=== PATIENT | female | born 1980 | race Caucasian/White ===

== ENCOUNTER 2017-10-02 05:15 | Emergency (ER) ==
[2017-10-02 05:26] VITALS: BP 155/91; TEMP 98.6; BMI 38.2
--- NOTE | 2017-10-02 06:10 | CT ---
EXAM: CT head without contrast 10/02/2017. Sagittal and coronal reformatted images obtained HISTORY: Facial numbness COMPARISON: None. FINDINGS: There is no evidence of intracranial hemorrhage. The midline is maintained. There is no h ydrocephalus. No cerebellar tonsillar ectopia. Evaluation of the calvarium shows no fracture. Th e mastoid air cells are normally pneumatized. IMPRESSION: No acute intracranial abnormality.
--- NOTE | 2017-10-02 06:16 | ED.PDOC ---
General Stated Complaint: Patient state she woke up with Sudden onset of numbness/ tingling to right side of face with tingling radiating down right side of body to feet. Denies any pain or weakness. she also states she has had a headache for 2 days behind right ear but that pain gone today. Also feels anxious Time Seen by Physician: 06:00 Mode of Arrival: Walk-In Information Source: Patient Nursing and Triage Documentation Reviewed and Agree: Yes Does patient meet sepsis criteria?: Yes If yes, has appropriate treatment been initiated?: No System Inflammatory Response Syndrome: Pulse >90 BPM, Resp >20/Minute <DARRION EDWARDS - Last Filed: 10/02/17 06:59> <ART THAPA - Last Filed: 10/02/17 08:26> ED Provider: Dr. ART THAPA Chief Complaint: Non-specific Complaint Sepsis Protocol: For patient's 13 years and over: Temp is 96.8 and below OR 101 and greater Pulse >90 BPM Resp >20/minute Acutely Altered Mental Status Are patient's symptoms suggestive of a new infection, such as: -Pneumonia -Skin, Soft Tissue -Endocarditis -UTI -Bone, Joint Infection -Implantable Device -Acute Abdominal Infection -Wound Infection -Meningitis -Blood Stream Catheter Infection -Unknown Neurological Complaint Exam - Neurological Deficit Complaint/Exam Patient Complains of: Reports: Abnormal sensation Symptom Onset Unknown: Yes (when he woke up) Onset: Sudden Location: Reports: Facial, RUE, RLE Character: Reports: Numbness, Paresthesia. Denies: Tingling, Motor weakness, Paralysis, Sensory loss, Impaired speech Aggravating: Reports: None Alleviating: Reports: None Associated Signs and Symptoms: Reports: Headache (for 2 days prior today ). Denies: Confusion, Agitation, Responsiveness, LOC, Fever, Nuchal rigidity, Recent trauma, Remote trauma, Recent illness Related History: Denies: Similar episode, Anticoagulant therapy CVA Risk Factors: Denies: None, Diabetes, Hypertension, Smoking, PVD, CAD, Valvular Heart Disease SDH Risk Factors: Denies: None, Male, Seizures, Elderly, Recent trauma, Anticoagulant use, Coagulopathy Related Surgical History: Denies: None, Craniotomy, Tumor, Carotid Endarterectomy, Pacemaker, Artificial valve Carotid Bruit Present: No Glascow Coma Scale (see protocol): 15 Meningeal Signs Positive: Yes Focal Weakness: Absent: None, RUE, LUE, RLE, LLE, Right facial, Left facial Focal Sensory Loss: Absent: None, RUE, LUE, RLE, LLE, Right facial, Left facial Gait: Normal Nystagmus Present: No Gag Reflex Present: No [id number]: Normal Findings Romberg Test Positive: No Babinski Sign: Negative Right, Negative Left Heel to Toe Normal: Yes Signs of Trauma: No NIH Scale Score (see protocol): 15 IV t-PA Prescribed: No Differential Diagnoses: Anxiety, Pichardo's Palsy, TIA, Intracranial Mass, Metabolic Imbalance, Migraine Quality Indicator For Non-Traumatic Chest Pain/Syncope: EKG Performed <JERRYDARRION - Last Filed: 10/02/17 06:59> Review of Systems - Review Of Systems Constitutional: Reports: No symptoms Eyes: Reports: No symptoms Ears, Nose, Mouth, Throat: Reports: No symptoms Respiratory: Reports: No symptoms Cardiac: Reports: No symptoms GI: Reports: No symptoms : Reports: No symptoms Musculoskeletal: Reports: No symptoms Skin: Reports: No symptoms Neurological: Reports: Anxiety. Denies: Weakness Endocrine: Reports: No symptoms Hematologic/Lymphatic: Reports: No symptoms All Other Systems: Reviewed and Negative <JERRYDARRION - Last Filed: 10/02/17 06:59> Past Medical History - Past Medical History Previously Healthy: Yes Endocrine: Reports: None Cardiovascular: Reports: None Respiratory: Reports: None Hematological: Reports: None Gastrointestinal: Reports: None Genitourinary: Reports: None Neuro/Psych: Reports: None Musculoskeletal: Reports: None Cancer: Reports: None Last Menstrual Period: 1 week ago - Surgical History General Surgical History: Reports: - Family History Family History: Reports: None - Social History Smoking Status: Former smoker Hx Substance Use: No Alcohol Screening: Occasionally - Immunizations Tetanus Shot up to Date: Yes <DARRION EDWARDS - Last Filed: 10/02/17 06:59> Physical Exam - Physical Exam Appearance: Ill-appearing, Obese Ill-appearing: Mild Pain Distress: None Eyes: SHANNA, EOMI, Conjunctiva clear ENT: Ears normal, Nose normal, Oropharynx normal Neck: Supple Respiratory: Airway patent Cardiovascular: Tachycardia GI/: Soft, Nontender, No masses, Bowel sounds normal, No Organomegaly Musculoskeletal: Normal strength, ROM intact, No edema, No calf tenderness Skin: Warm Neurological: Sensation intact, Motor intact, Reflexes intact, Cranial nerves intact, Alert, Oriented Psychiatric: Anxious <GINADARRION GARCIA Last Filed: 10/02/17 06:59> Interpretation - Radiology Interpretation Radiology Interpretation By: Radiologist Radiology Results: Negative Exam Interpreted: CT Scan - Contracts Officer Time of Contracts Officer Interpretation: 06:00 Rate: Normal Rhythm: Sinus Ectopy: None - EKG Interpretation Time of EKG #1: 06:13 Rate: Normal Rhythm: Sinus Ectopy: None [place]: NL ST Segment: Normal Interpretation: normal EKG <DARRION EDWARDS Last Filed: 10/02/17 06:59> Re-Evaluation - Re-Evaluation Time of Re-Evaluation: 08:00 (Neuro intact; no apparent Pichardo's; speach normal) Status: Improved (No longer sensory changes R side body, extremities. Just "wierd" feeling R face) Vital Signs Stable: Yes Pain Level: None Appearance: NAD Skin: Warm and Dry Neuro: Alert and Oriented X3 <ART THAPA - Last Filed: 10/02/17 08:26> Critical Care Note - Critical Care Note Total Time (mins): 0 <GINARADHADARRION - Last Filed: 10/02/17 06:59> - Critical Care Note Total Time (mins): 45 (Eval of neurologic findings) <ART THAPA - Last Filed: 10/02/17 08:26> Course - Course Hematology/Chemistry: 10/02/17 06:05 10/02/17 06:05 <JERRYDARRION - Last Filed: 10/02/17 06:59> - Course Hematology/Chemistry: 10/02/17 06:05 10/02/17 06:05 <ALANISART - Last Filed: 10/02/17 08:26> - Course Orders, Labs, Meds: Lab Review 10/02/17 10/02/17 10/02/17 06:05 06:05 06:05 WBC 10.59 H RBC 4.76 Hgb 13.2 Hct 39.5 MCV 83.0 MCH 27.7 MCHC 33.4 RDW Coeff of Renetta 12.1 Plt Count 361 Immature Gran % (Auto) 0.4 Neut % (Auto) 57.4 Lymph % (Auto) 28.6 [place] % (Auto) 5.9 Eos % (Auto) 6.1 Baso % (Auto) 1.6 Immature Gran # (Auto) 0.0 Neut # (Auto) 6.1 Lymph # (Auto) 3.0 [place] # (Auto) 0.6 Eos # (Auto) 0.7 Baso # (Auto) 0.2 ESR Sodium 137 Potassium 3.7 Chloride 105 Carbon Dioxide 22 Anion Gap 13.7 BUN 10 Creatinine 0.67 Estimated GFR (MDRD) 99.00 BUN/Creatinine Ratio 14.92 Glucose 122 H Calcium 9.1 Total Bilirubin 0.3 AST 46 H ALT 67 Alkaline Phosphatase 98 Total Creatine Kinase 43 Troponin I 0.0140 Total Protein 7.1 Albumin 3.8 Globulin 3.3 Albumin/Globulin Ratio 1.15 TSH Free T4 Urine Color Urine Clarity Urine pH Ur Specific [place] Urine Protein Urine Glucose (UA) Urine Ketones Urine Blood Urine Nitrite Urine Bilirubin Urine Urobilinogen Ur Leukocyte Esterase Urine Test 10/02/17 10/02/17 10/02/17 06:05 06:05 06:45 WBC RBC Hgb Hct MCV MCH MCHC RDW Coeff of [place] Plt Count Immature Gran % (Auto) Neut % (Auto) Lymph % (Auto) [place] % (Auto) Eos % (Auto) Baso % (Auto) Immature Gran # (Auto) Neut # (Auto) Lymph # (Auto) [place] # (Auto) Eos # (Auto) Baso # (Auto) ESR 13 Sodium Potassium Chloride Carbon Dioxide Anion Gap BUN Creatinine Estimated GFR (MDRD) BUN/Creatinine Ratio Glucose Calcium Total Bilirubin AST ALT Alkaline Phosphatase Total Creatine Kinase Troponin I Total Protein Albumin Globulin Albumin/Globulin Ratio TSH 1.632 Free T4 0.88 Urine Color Yellow Urine Clarity Clear Urine pH 6.5 Ur Specific [place] <=1.005 Urine Protein Negative Urine Glucose (UA) Negative Urine Ketones Negative Urine Blood Negative Urine Nitrite Negative Urine Bilirubin Negative Urine Urobilinogen 0.2 Ur Leukocyte Esterase Negative Urine Test 10/02/17 06:45 WBC RBC Hgb Hct MCV MCH MCHC RDW Coeff of [place] Plt Count Immature Gran % (Auto) Neut % (Auto) Lymph % (Auto) [place] % (Auto) Eos % (Auto) Baso % (Auto) Immature Gran # (Auto) Neut # (Auto) Lymph # (Auto) [place] # (Auto) Eos # (Auto) Baso # (Auto) ESR Sodium Potassium Chloride Carbon Dioxide Anion Gap BUN Creatinine Estimated GFR (MDRD) BUN/Creatinine Ratio Glucose Calcium Total Bilirubin AST ALT Alkaline Phosphatase Total Creatine Kinase Troponin I Total Protein Albumin Globulin Albumin/Globulin Ratio TSH Free T4 Urine Color Urine Clarity Urine pH Ur Specific [place] Urine Protein Urine Glucose (UA) Urine Ketones Urine Blood Urine Nitrite Urine Bilirubin Urine Urobilinogen Ur Leukocyte Esterase Urine Test Negative Orders Category Date Time Status EKG-(ED ONLY) Stat CARDIO 10/02/17 05:44 Completed CBC W/ AUTO DIFF Stat LAB 10/02/17 06:05 Completed COMPREHENSIVE METABOLIC PANEL Stat LAB 10/02/17 06:05 Completed CREATINE KINASE Stat LAB 10/02/17 06:05 Completed ESR Stat LAB 10/02/17 06:05 Received FREE T4 (FREE THYROXINE) Stat LAB 10/02/17 06:05 Completed THYROID STIMULATING HORMONE Stat LAB 10/02/17 06:05 Completed TROPONIN I Stat LAB 10/02/17 06:05 Completed URINALYSIS C & S IF INDICATED Stat LAB 10/02/17 06:45 Completed URINE Stat LAB 10/02/17 06:[address] HEAD W/O CONTRAST Stat RADS 10/02/17 05:44 Completed Vital Signs: Temp Pulse Resp BP Pulse Ox 10/02/17 05:17 98.6 F 105 H 24 155/91 H 97 Departure <JERRYDARRION - Last Filed: 10/02/17 06:59> - Departure Time of Disposition: 08:16 Pt referred to PMD for follow-up: Yes (Call for appointment) IPMP verified?: No (No narcotics prescribed) Disposition Discussed With: Patient (Possibility of observation discussed; patient and family prefer to wait and see - symptoms have lessened and are not concerning for develping neurologic acute or chronic process. Family will watch for changes; patient wants to go home...says she "panicked" with issues when getting ready for work this AM and came to ER. Educated all labs are either non contributory or totally normal or within limits.), Family <ALANISART - Last Filed: 10/02/17 08:26> - Departure Disposition: HOME SELF-CARE Discharge Problem: Alterations of sensations Instructions: Paresthesia (ED) Condition: Good Additional Instructions: Rest today; no work. Return to an ER if further concerns or suden worsening of symptoms or development of new symptoms. Follow up with a primary care provider as needed. Prescriptions: Prednisone 20 mg PO DAILYWM #18 tablet Allergies/Adverse Reactions: Allergies No Known Allergies Allergy (Unverified 10/02/17 05:26) Home Medications: Ambulatory Orders Prednisone 20 mg PO DAILYWM #18 tablet 10/02/17
== END 2017-10-02 08:39 | disposition home or self-care (01) ==
LOC: ED 05:15
DX: R20.0 Anesthesia of skin (principal); R20.2 Paresthesia of skin
CPT/HCPCS: 36415; 80053; 81001; 81025; 82550; 84439; 84443; 84484; 85025; 85651; 93005; 93010; 99283